=== PATIENT | male | born 1960 | race Caucasian/White ===

== ENCOUNTER → 2023-08-22 | Outpatient (CLI) | payer MEDICARE, MEDICAID | END | disposition home or self-care (01) | LOC: RAD 12:27 | PROVIDERS: ATTEND Physician Assistant | DX: I51.7 Cardiomegaly (principal); R07.9 Chest pain, unspecified; J81.1 Chronic pulmonary edema | CPT/HCPCS: 71046 ==

== ENCOUNTER 2024-11-26 13:17 | Emergency (ER) | payer MEDICARE, BC ==
[~2024-11-26] VITALS: Ht 177.8 cm; Wt 118.0 kg
[2024-11-26 13:39] VITALS: BP 131/73; PULSE 71; TEMP 98.6; O2SAT 97
[2024-11-26 14:17] VITALS: RESP 18
[2024-11-26] MEDS ORDERED: ibuprofen tablet 400 MG TABLET PO STA (15:21)
--- NOTE | 2024-11-26 15:26 | Physician Documentation ---
History of Present Illness ~ Chief Complaint: Groin Pain Stated Complaint: GROIN PAIN Time Seen by MD: 14:39 Mode of Arrival: POV, Ambulatory HPI Patient is seen today with complaints of pain in his left groin for adductor thigh muscle. He denies any testicular pain and denies any bulges or injury or change in daily activity. He has no other concern or complaint at this time. Medication Reconciliation Allergies: Coded Allergies: Penicillins (Verified Allergy, Severe, HIVES AND SWOLLEN THROAT, 11/26/24) carbamazepine (Verified Allergy, Severe, HIVES, SWOLLEN THROAT, 11/26/24) ceftriaxone (Verified Allergy, Severe, HIVES SWOLLEN THROAT, 11/26/24) modafinil (Verified Allergy, Intermediate, ITCHY, 11/26/24) omeprazole (Verified Allergy, Intermediate, ITCHY, 11/26/24) Review of Systems Constitutional: Denies: chills, fever, weakness Eyes: Denies: pain, blurred vision ENT: Denies: ear pain, nose pain, throat pain, mouth pain Respiratory: Denies: cough, shortness of breath Cardiovascular: Denies: chest pain, palpitations Gastrointestinal: Denies: abdominal pain, nausea, vomiting Genitourinary: Denies: burning, dysuria Male Genitalia: Denies: penile discharge, testicular pain Neurological: Denies: headache, dizziness Musculoskeletal: Denies: pain, swelling Integumentary: Denies: rash, lesions Allergic/Immunologic: Denies: hives, itching Hematologic/Lymphatic: Denies: no symptoms reported Psychiatric: Denies: depression, anxiety Physical Exam Vital Signs: Temperature: 98.6, Source: Oral, Heart Rate: 71, Respiratory Rate: 18, BP: 131/73, Pulse Oximetry: 97, Weight: 118.000 Oxygen Flow Rate: 0 Physical Exam General: Awake and Alert, no acute distress. HEENT: Conjunctiva pink, Sclera clear, Mucus Membranes moist. Neck: Supple without masses and tenderness. Resp: Unlabored. Lungs clear to auscultation bilaterally. Heart: Regular Rate and rhythm, normal S1 and S2 without murmur, rub or gallop. Musculoskeletal: Patient on exam does have tenderness to palpation of the adductor muscles proximally of the left lower extremity. Patient is neurovascularly intact distally. Motor function intact distally. Patient has decreased range of motion of the left leg in abduction due to pain. : Patient on exam has no visible deformity or irregularity or swelling of the testicles or scrotum. Extremities: No cyanosis,clubbing or edema. Skin: Warm and Dry. Progress Results/Orders Results/Orders Vital Signs 11/26/24 11/26/24 13:39 14:17 Temp 98.6 Pulse 71 Resp 18 18 B/P (MAP) 131/73 Pulse Ox 97 O2 Flow Rate 0 Medical Decision Making Findings Patient is seen today with complaints of pain in his left groin for adductor thigh muscle. He denies any testicular pain and denies any bulges or injury or change in daily activity. He has no other concern or complaint at this time. Patient will be excused from week for five days. Patient will follow up with primary care in 5-7 days if no better as needed sooner for repeat eval and poss ible referral to physical therapy. Prescription of ibuprofen 800 mg by mouth one tab 3 times a day sent to patient's pharmacy. Patient was given dose of ibuprofen in ED today 800 mg by mouth. Return to ED with any worsening, concerning or changing symptoms. Departure Disposition: 01 HOME / SELF CARE / HOMELESS Impression: Primary Impression: Muscle strain of left thigh Qualified Codes: S76.912A - Strain of unspecified muscles, fascia and tendons at thigh level, left thigh, initial encounter Condition: Stable Discharge Instructions: Strain, Muscle Additional Instructions: Patient will be excused from week for five days. Patient will follow up with primary care in 5-7 days if no better as needed sooner for repeat eval and possible referral to physical therapy. Prescription of ibuprofen 800 mg by mouth one tab 3 times a day sent to patient's pharmacy. Patient was given dose of ibuprofen in ED today 800 mg by mouth. Return to ED with any worsening, concerning or changing symptoms. Departure Forms: Excuse form Work or School Excused From: Work Excuse beginning now through the following date: Nov 30, 2024 Referrals: NO PRIMARY CARE PROVIDER (PCP) Prescriptions Ibuprofen (Ibuprofen) 800 Mg Tablet 1 TAB PO Q8H for pain for 10 Days, #30 TAB 0 Refills Prov: BASIL THOMAS 11/26/24 Signature Scribe Signature: No scribe Attestation: No scribe BASIL THOMAS Nov 26, 2024 15:26
[2024-11-26] MEDS ORDERED: IBUP-1986 PO (15:28)
== END 2024-11-26 15:47 | disposition home or self-care (01) ==
LOC: ER 13:18
DX: S76.912A Strain of unspecified muscles, fascia and tendons at thigh level, left thigh, initial encounter (principal); R10.32 Left lower quadrant pain; Z88.0 Allergy status to penicillin; Z88.1 Allergy status to other antibiotic agents; X58.XXXA Exposure to other specified factors, initial encounter; Y93.89 Activity, other specified; Y92.89 Other specified places as the place of occurrence of the external cause; Y99.8 Other external cause status
CPT/HCPCS: 99283